=== PATIENT | male | born 1985 | race Asian ===

== ENCOUNTER 2021-05-23 13:56 | Outpatient (REF) | payer OTHER, SELFPAY ==
[2021-05-23 15:20] LABS: COVID-19 Test Negative (Negative)
== END 2021-05-23 13:57 | disposition home or self-care (01) ==
LOC: HO.LAB 13:56
PROVIDERS: Visit Provider Internal Medicine
DX: Z20.822 Contact with and (suspected) exposure to COVID-19 (principal)
CPT/HCPCS: 36415; 87635; C9803

== ENCOUNTER 2021-07-12 07:33 | Outpatient (REF) | payer OTHER, SELFPAY | END 2021-07-12 07:34 | disposition home or self-care (01) | LOC: HO.LAB 07:33 | PROVIDERS: Visit Provider Internal Medicine | DX: Z20.822 Contact with and (suspected) exposure to COVID-19 (principal) | CPT/HCPCS: C9803; U0003; U0005 ==